=== PATIENT | female | born 1950 | race American Indian/Alaskan Native ===

== ENCOUNTER 2018-07-20 10:07 | Outpatient (CLI) | payer MEDICARE | END 2018-07-20 10:08 | disposition home or self-care (01) | LOC: C.MAMMO 10:07 ==

== ENCOUNTER 2018-09-22 08:04 | Outpatient (CLI) | payer MEDICARE | END 2018-09-22 08:05 | disposition home or self-care (01) | LOC: C.MRIC 08:04 ==